=== PATIENT | male | born 1975 | race Native Hawaiian/Other Pacific Islander ===

== ENCOUNTER 2019-05-11 15:04 | Emergency (ER) | payer OTHER ==
[2019-05-11] MEDS ORDERED: hydrALAZINE 20 MG/ML SDV IM ONE (15:25)
[2019-05-11] MEDS ORDERED: Ketorolac 60 MG/2 ML SDV IM ONE (15:25)
[2019-05-11] MEDS ORDERED: cloNIDine 0.1 MG Tab PO ONE (15:27)
--- NOTE | 2019-05-11 16:22 | EDM.PDOC ---
ED HPI GENERAL MEDICAL PROBLEM - General Chief Complaint: Lower Extremity Injury/Pain Stated Complaint: RIGHT KNEE INJURY Time Seen by Provider: 05/11/19 15:10 Source of Information: Reports: Patient History Limitations: Reports: No Limitations - History of Present Illness INITIAL COMMENTS - FREE TEXT/NARRATIVE: Patient presented to the ED because of rt knee pain. He twisted it 3 days ago and c/o 4/10 pain which is worse with movement. right knee Pain Score (Numeric/FACES): 10 - Related Data Allergies Allergy/AdvReac Type Severity Reaction Status Date / Time No Known Allergies Allergy Verified 05/11/19 15:24 Home Meds: Home Meds Ibuprofen 800 mg PO TID PRN #30 tablet 05/11/19 [Rx] Lisinopril [Zestril] 20 mg PO DAILY #30 tablet 05/11/19 [Rx] Past Medical History Cardiovascular History: Reports: Hypertension Social & Family History - Tobacco Use Smoking Status *Q: Current Every Day Smoker Years of Tobacco use: 15 Packs/Tins Daily: 0.5 Review of Systems - Review of Systems Review Of Systems: See Below Eyes: Reports: No Symptoms Ears: Reports: No Symptoms Nose: Reports: No Symptoms Mouth/Throat: Reports: No Symptoms Respiratory: Reports: No Symptoms Cardiovascular: Reports: No Symptoms Musculoskeletal: Reports: Other (knee pain) Skin: Reports: No Symptoms Neurological: Reports: No Symptoms Psychiatric: Reports: No Symptoms ED EXAM, GENERAL - Physical Exam Exam: See Below Exam Limited By: No Limitations General Appearance: Alert, No Apparent Distress Ears: Normal External Exam, Normal Canal Nose: Normal Inspection, Normal Mucosa Throat/Mouth: Normal Inspection, Normal Lips Head: Atraumatic, Normocephalic Neck: Normal Inspection, Supple, Non-Tender Respiratory/Chest: No Respiratory Distress, Lungs Clear Cardiovascular: Normal Peripheral Pulses, Regular Rate, Rhythm, No Edema, No Gallop GI/Abdominal: Normal Bowel Sounds, Soft Extremities: Other (tenerness over the superior and inferior aspect of the right knee) Neurological: Oriented, CN II-XII Intact Course - Vital Signs Text/Narrative:: xray right knee-see result Toradol 60 mg IM x1 hydralazine 20 mg IM x1 Clonidine 0.2mg po x1 Patient was found to have hypertensive crisis while in the ED although he is asymptomatic His pain improved and his BP upon discharge 153/93 Last Recorded V/S: Last Vital Signs Temp 36.7 C 05/11/19 15:04 Pulse 91 05/11/19 15:04 Resp 17 05/11/19 15:04 BP 183/121 H 05/11/19 15:50 Pulse Ox 100 05/11/19 15:04 - Orders/Labs/Meds Orders: Active Orders 24 hr Category Date Time Status Knee 3V Rt [CR] Stat Exams 05/11/19 15:10 Taken Meds: Medications Discontinued Medications Generic Name Dose Route Start Last Admin Trade Name Freq PRN Reason Stop Dose Admin Clonidine HCl 0.2 mg 05/11/19 15:27 05/11/19 15:50 Catapres PO 05/11/19 15:28 0.2 mg ONETIME ONE Administration Hydralazine HCl 20 mg 05/11/19 15:25 05/11/19 15:50 Apresoline IM 05/11/19 15:26 20 mg ONETIME ONE Administration Ketorolac Tromethamine 60 mg 05/11/19 15:25 05/11/19 15:50 Toradol IM 05/11/19 15:26 60 mg ONETIME ONE Administration Departure - Departure Time of Disposition: 16:15 Disposition: Home, Self-Care 01 Condition: Good Clinical Impression: Knee sprain, Hypertension - Discharge Information Prescriptions: Ibuprofen 800 mg PO TID PRN #30 tablet PRN Reason: Pain Lisinopril [Zestril] 20 mg PO DAILY #30 tablet Referrals: PCP,None [Primary Care Provider] - Additional Instructions: please read discharge instructions on high blood pressure do not quit taking your medicine,you can have complications of Stroke, Heart Attack, Congestive Heart Failure and Kidney Failure start taking your BP meds tomorrow morning take ibuprofen 800 mg with tylenol 1000 mg every 8 hours as needed for pain follow up as needed - My Orders Last 24 Hours: My Active Orders 05/11/19 15:10 Knee 3V Rt [CR] Stat - Assessment/Plan Last 24 Hours: My Active Orders 05/11/19 15:10 Knee 3V Rt [CR] Stat
== END 2019-05-11 16:42 | disposition home or self-care (01) ==
LOC: FB.ED 15:04
DX: S83.91XA Sprain of unspecified site of right knee, initial encounter (principal); I10 Essential (primary) hypertension; F17.210 Nicotine dependence, cigarettes, uncomplicated; Z79.899 Other long term (current) drug therapy; X50.1XXA Overexertion from prolonged static or awkward postures, initial encounter
CPT/HCPCS: 73562; 96372; 99283; A9270; J0360; J1885